=== PATIENT | female | born 1940 | race Caucasian/White ===

== ENCOUNTER → 2024-09-25 07:27 | Outpatient (REF) | payer MEDICARE, SELFPAY | LOC: RCS 07:27 | PROVIDERS: ATTENDING PHYSICIAN Family Medicine | DX: R01.1 Cardiac murmur, unspecified (principal) | CPT/HCPCS: 93306 ==

== ENCOUNTER → 2024-12-14 10:29 | Outpatient (REF) | payer MEDICARE, SELFPAY | LOC: RAD 10:29 | PROVIDERS: ATTENDING PHYSICIAN Family Medicine | DX: M79.602 Pain in left arm (principal) | CPT/HCPCS: 73060 ==

== ENCOUNTER 2025-05-30 11:29 | Emergency (ER) | payer MEDICARE, SELFPAY ==
[2025-05-30 11:56] VITALS: BP 114/62
[2025-05-30 12:19] LABS: Hematocrit 33.2 % (37.0-47.0); Hemoglobin 11.2 g/dL (12.0-16.0); Mean Corp Hgb Conc. 33.7 g/dL (33.0-37.0); Mean Corpuscular Volume 93.8 fL (81.0-99.0); Nucleated Red Blood Cells % 0 %; Platelet Count 286 10^3/uL (130-400); Red Cell Dist. Width 12.5 % (11.5-14.5)
[2025-05-30 12:32] LABS: ALT (SGPT) 15 U/L (0-35); AST (SGOT) 23 U/L (14-36); Albumin 4.2 g/dl (3.5-5.0); Alkaline Phosphatase 48 U/L (38-126); Blood Urea Nitrogen 11 mg/dl (7-17); Calcium 9.1 mg/dl (8.4-10.2); Carbon Dioxide 26 mmol/L (22-30); Chloride 104 mmol/L (98-107); Glucose 92 mg/dl (70-99); Lipase 74 U/L (23-300); Potassium 4.1 mmol/L (3.5-5.1); Sodium 136 mmol/L (135-145); Total Protein 6.8 g/dl (6.3-8.2); eGFR > 60.00
[2025-05-30 15:00] VITALS: BP 122/69
[2025-05-30] MEDS: PROTONIX IV 40 MG IV (17:49)
[2025-05-30] MEDS: NSS 1000 IV (17:50)
--- NOTE | 2025-05-30 18:14 | ED.GENMED ---
History of Present Illness
General
Chief Complaint: Abdominal Symptoms
Source: patient and spouse
Exam Limitations: none
Time Seen by Provider: 05/30/25 17:29
Nursing documentation reviewed up to this point in time: agreed with
History of Present Illness
History of Present Illness:
Patient presents to ED secondary to 3-week history of nonbloody diarrhea along with abdominal cramping sensation, as well as decreased appetite. Patient was evaluated by her primary care physician 1 week ago and was encouraged to take fluids, with
concern that her symptoms may be secondary to viral infection. However, her symptoms have persisted since then. Denies fever or chills. Denies vomiting. Denies sick contact. Denies recent travel. Denies recent change in medications or diet.
Denies previous history of similar symptoms.
Past History
Past History
ED Past Medical History: HTN and Hypercholesterolemia
ED Past Surgical History: Appendectomy and
Social History
Tobacco: Non-smoker
Alcohol: Occasional
Drug: None
Personal:
Living: with family
Review of Systems
Review of Systems
Allergies reviewed?: Yes
All Other Systems: ROS reviewed and negative except as documented in HPI and ROS
Constitutional: Reports no symptoms; Denies fever or chills
Respiratory: Reports no symptoms
Cardiac: Reports no symptoms
ABD/GI: Reports abdominal pain and diarrhea; Denies nausea or vomiting
Musculoskeletal: Reports no symptoms
Skin: Reports no symptoms
Neurological: Reports no symptoms; Denies dizzy
Phy Exam
Physical Exam
Physical Exam:
Physical Exam
General: mild distress, not acutely ill. afebrile
Head: nc/at. eomi
Neck: supple. normal range of motion.
Heart: s1/s2 regular rate and rhythm
Lungs: no acute respiratory distress. clear bilaterally
Abdomen: normal bowel sounds. no distention. mild diffuse tenderness to palpation noted
Neuro: alert and oriented x 3. no focal neurological deficits
Skin: no rash
Psychiatric: well kept. interactive and cooperative
Extremities: no edema. no calf tenderness.
Course
Orders/Labs/Results
Orders:
Orders
05/30/25 12:08
Complete Blood Count/With Diff Urgent
Comprehensive Metabolic Panel Urgent
Lipase Urgent
Magnesium Urgent
Comment: ADD ON
05/30/25 17:37
Add On- LAB Urgent
Tests Added?: magnesium
Stool Culture Urgent
ALDO Source: Feces/Stool
Specimen Description:
Date Specimen was Collected: 05/30/25
Time Specimen was Collected: 17:39
0.9% Sodium Chloride 1000 ml [Nss] 1,000 ml IV BOLUS
Pantoprazole [Protonix IV] 40 mg IV NOW STA
05/30/25 17:38
CT Abd/pelvis W Iv Cont Urgent
Comment:
Reason For Exam: low abd pain w diarrhea
Abnormal Lab Results
05/30/25
12:08
RBC 3.54 L 10^6/uL
(4.20-5.40)
Hgb 11.2 L g/dL
(12.0-16.0)
Hct 33.2 L %
(37.0-47.0)
MCH 31.6 H pg
(27.0-31.0)
Absolute Monos (auto) 0.8 H 10^3/uL
(0.1-0.6)
Monocytes % 10.7 H %
(1.7-9.3)
05/30/25 12:08
05/30/25 12:08
Vital Signs
Initial and Last Documented VS:
Initial Vital Signs
Temp Pulse Resp BP Pulse Ox
98.1 F 79 20 114/62 99
05/30/25 11:56 05/30/25 11:56 05/30/25 11:56 05/30/25 11:56 05/30/25 11:56
Last Documented Vital Signs
Temp Pulse Resp BP Pulse Ox
98.0 F 80 20 139/86 100
05/30/25 19:24 05/30/25 19:24 05/30/25 19:24 05/30/25 19:24 05/30/25 19:24
MDM/Problems Addressed
MDM/Problems Addressed:
CT abd/pelvis report reviewed and discussed with patient and spouse. In light of patient's ongoing diarrhea along with evidence of mild dehydration, offered admission to the hospital for IV hydration. However, at this time, patient prefers to be
discharged home where she will continue hydration along with PCP follow-up. With stable vital signs and reassuring blood work, I do not think this is unreasonable. As such, patient will be discharged home with return precautions provided, as well
as potential GI consultation as outpatient.
*Pulse Oximetry
SaO2: 99
Oxygen Mode of Delivery: Room air
Patient hypoxic: no
*Critical Care Note
Total Time (30-74mins, 75-104mins- exclusive of procedures): Not Applicable
ED Attending Note
-
Portions of this chart may have been created with voice recognition software.� Occasional wrong word or��sound alike� substitutions may have occurred due to the inherent limitations of voice recognition software.
Discharge Plan
Departure
Patient Disposition: Home (Routine Discharge)
Date of Disposition: 05/30/25
Time of Disposition: 21:09
Patient with high blood pressure during this ER visit?: Yes
Discharge Problem:
Diarrhea
Instructions: Diarrhea in teens and adults
Prescriptions:
No Action
mupirocin 1 APPLIC ointment
1 applic intranasal BID Qty: 1 0RF
Patient Comments:
Administered on SDS 05/26/2020 at 0705. Patient started this treatment on 05/24/2020 in the morning
lisinopril 20 MG tablet
20 mg PO DAILY
celecoxib 200 MG capsule
200 mg PO DAILY 0RF
sennosides [senna] 1 TABLET tablet
2 tab PO BID 0RF
acetaminophen 325 MG tablet
650 mg PO Q4HWA 0RF
aspirin 325 MG tablet
325 mg PO DAILY 0RF
docusate sodium 100 MG capsule
100 mg PO BID 0RF
mupirocin 1 APPLIC ointment
1 applic intranasal BID 0RF
alum-mag hydroxide-simeth [Mag-Al Plus] 30 ML suspension
30 ml PO Q4HPRN PRN (Reason: indigestion) 0RF
oxycodone 5 MG tablet
5 mg PO Q4HPRN PRN (Reason: mild pain) 0RF
oxycodone 10 MG tablet
10 mg PO Q4HPRN PRN (Reason: moderate pain) 0RF
Referrals:
Laura Medeiros MD [Active, Gastroenterology]
Otilio Reyes DO [Family Provider, Family Practice]
Activity Restrictions/Additional Instructions:
As discussed, please follow-up with your primary care physician and or referred GI physician for reevaluation. Please consider return to ED with worsening symptoms.
Interventions
Interventions:
*General Assessment Last Done: 05/30/25 17:23
*Nursing Disposition Last Done: 05/30/25 21:21
WA-Dglggb-Pszozznqbp Assessment Last Done: 05/30/25 17:23
Discharge Date and Time
Discharge Date/Time: 05/30/25 21:21
Print Language: PORTUGUESE
[2025-05-30 18:16] LABS: Magnesium 1.6 mg/dl (1.6-2.3)
[2025-05-30 19:24] VITALS: BP 139/86
== END 2025-05-30 21:21 | disposition home or self-care (01) ==
LOC: EMR 11:29
PROVIDERS: Emergency Medicine; EMERGENCY PHYSICIAN Emergency Medicine; FAMILY PHYSICIAN Family Medicine
DX: R19.7 Diarrhea, unspecified (principal); E86.0 Dehydration; R10.30 Lower abdominal pain, unspecified; I10 Essential (primary) hypertension; E78.00 Pure hypercholesterolemia, unspecified; Z90.49 Acquired absence of other specified parts of digestive tract
CPT/HCPCS: 96374; 96361; 99284; 74177; 80053; 83690; 83735; 85025; Q9967

== ENCOUNTER → 2025-06-01 13:01 | Outpatient (REF) | payer MEDICARE, SELFPAY | LOC: REG 13:01 | PROVIDERS: ATTENDING PHYSICIAN Family Medicine | DX: K52.9 Noninfective gastroenteritis and colitis, unspecified (principal) | CPT/HCPCS: 83993; 87045; 87046; 87077; 87324; 87328; 87329; 87427; 87449; 89055 ==